=== PATIENT | male | born 1960 | race Caucasian/White ===

== ENCOUNTER 2017-04-25 06:55 | Day surgery (SDC) | payer OTHER ==
[~2017-04-25] VITALS: Ht 162.6 cm; Wt 78.9 kg
[2017-04-25 07:39] VITALS: Ht 162.6 cm; Wt 78.9 kg
[2017-04-25 08:15] VITALS: BP 154/89; PULSE 60; RESP 17
[2017-04-25] MEDS ORDERED: MIDAZOLAM 1 MG/ML 2 ML INJ ONE ×3 (09:24)
[2017-04-25] MEDS ORDERED: FENTAnyl 50 MCG/ML VIAL ONE (09:24)
[2017-04-25 09:52] VITALS: BP 109/72; RESP 20
--- NOTE | 2017-05-02 05:27 | GILP ---
DATE OF PROCEDURE: 04/25/2017 PREOPERATIVE DIAGNOSIS: Screening colonoscopy. POSTOPERATIVE DIAGNOSES: 1. Colonoscopy all the way to the cecum. 2. Internal hemorrhoids. 3. No colon neoplasm was identified. PROCEDURE PERFORMED: Colonoscopy. SURGEON: Adonay Sy MD. INDICATION FOR PROCEDURE: Mr. Tk Mccartney is a 56-year-old male patient who was scheduled for screening colonoscopy. The procedure and possible complications were well explained to the patient. He understood and consented to the procedure. DESCRIPTION OF PROCEDURE: Under the influence of fentanyl and Versed the colonoscope was carefully introduced in the rectum and under direct vision it was advanced all the way to the cecum. Findings, the patient had internal hemorrhoids. No colon neoplasm was identified. The patient tolerated the procedure very well and there was no complication from the procedure. At the end of the procedure he was awake with stable vital signs and he was discharged home in care of his family. IMPRESSION: 1. Colonoscopy all the way to the cecum. 2. Internal hemorrhoids. 3. No colon neoplasm was identified. PLAN: Next screening colonoscopy in 10 years. Dictated By: MD ZIA Vu/neva/johnson /Document#: [id number] CC: Adonay Sy MD;*EndCC*
== END 2017-04-25 18:00 | disposition home or self-care (01) ==
LOC: GIL 06:55
PROVIDERS: ATTEND Internal Medicine Gastroenterology
DX: Z12.11 Encounter for screening for malignant neoplasm of colon (principal); K64.8 Other hemorrhoids
CPT/HCPCS: 45378; J2250; J3010; Z7610